=== PATIENT | male | born 1965 | race Caucasian/White ===

== ENCOUNTER 2018-04-12 19:30 | Emergency (ER) | payer SELFPAY, BC ==
[2018-04-12] MEDS: PERCOCET 5MG/325MG TAB PO (20:11)
[2018-04-12 20:22] LABS: KETONE, URINE AUTO RFX TRACE mg/dL (NEGATIVE); MUCUS, URINE RFX SMALL (NEGATIVE); NITRITE, URINE AUTO RFX NEGATIVE (NEGATIVE); RBC, URINE AUTO RFX 13 /HPF (0-3); SPECIFIC GRAVITY UR AUTO RFX 1.021 (1.002-1.035); SQUAM EPITHELIAL CELL UR AURFX 1 /HPF (0-6); WBC, URINE AUTO RFX 5 /HPF (0-3)
[2018-04-12 20:23] LABS: LEUKOCYTE ESTERASE UR AUTO RFX TRACE (NEGATIVE)
== END 2018-04-12 22:35 | disposition left against medical advice (07) ==
LOC: M ED 22:35
DX: N20.0 Calculus of kidney (principal); N13.30 Unspecified hydronephrosis; M54.12 Radiculopathy, cervical region; F17.210 Nicotine dependence, cigarettes, uncomplicated; Z87.442 Personal history of urinary calculi; Z79.899 Other long term (current) drug therapy
CPT/HCPCS: 74176

== ENCOUNTER → 2018-06-15 | Outpatient (CLI) | payer MEDICAID ==
[2018-06-15 18:47] LABS: ANION GAP 6 MEQ/L (8-16); BLOOD UREA NITROGEN 23 MG/DL (7-18); CALCIUM LEVEL 8.6 MG/DL (8.5-10.1); CARBON DIOXIDE LEVEL 29 MEQ/L (21-32); CHLORIDE LEVEL 109 MEQ/L (98-107); CREATININE FOR GFR 1.25 MG/DL (0.70-1.30); GLOMERULAR FILTRATION RATE > 60.0 (>56); GLUCOSE, FASTING 98 MG/DL (70-100); POTASSIUM SERUM 4.4 MEQ/L (3.5-5.1); SODIUM LEVEL 144 MEQ/L (136-145)
[2018-06-15 18:58] LABS: PROTHROMBIN TIME 12.2 SECONDS (12.1-14.4)
[2018-06-15 18:59] LABS: PARTIAL THROMBOPLASTIN TIME 27.7 SECONDS (25.4-37.6)
[2018-06-15 19:20] LABS: HEMATOCRIT 44.8 % (42.0-52.0); HEMOGLOBIN 14.6 g/dl (13.5-17.5); MEAN CORPUSCULAR HEMOGLOBIN 30.2 pg (27.0-33.0); MEAN CORPUSCULAR HGB CONC 32.6 g/dl (32.0-36.5); MEAN CORPUSCULAR VOLUME 92.8 fl (80.0-96.0); PLATELET COUNT, AUTOMATED 179 10^3/uL (150-450); RED BLOOD COUNT 4.83 10^6/uL (4.30-6.10); RED CELL DISTRIBUTION WIDTH 13.6 % (11.5-14.5); WHITE BLOOD COUNT 9.5 10^3/uL (4.0-10.0)
[2018-06-15 19:41] LABS: AMORPHOUS SEDIMENT MODERATE (NEGATIVE); APPEARANCE, URINE TURBID (CLEAR); BACTERIA, URINE AUTO NEGATIVE (NEGATIVE); BILIRUBIN, URINE AUTO NEGATIVE (NEGATIVE); BLOOD, URINE BLOOD 3+ (NEGATIVE); CALCIUM OXALATE CRYSTALS SMALL; COLOR, URINE YELLOW (YELLOW); GLUCOSE, URINE (UA) AUTO NEGATIVE (NEGATIVE); KETONE, URINE AUTO NEGATIVE (NEGATIVE); LEUKOCYTE ESTERASE, URINE AUTO NEGATIVE (NEGATIVE); MUCUS, URINE SMALL (NEGATIVE); NITRITE, URINE AUTO NEGATIVE (NEGATIVE); PROTEIN, URINE AUTO 2+ mg/dL (NEGATIVE); RBC, URINE AUTO TNTC /HPF (0-3); SPECIFIC GRAVITY URINE AUTO 1.026 (1.002-1.035); SQUAMOUS EPITHELIAL CELL UR AU 0 /HPF (0-6); URIC ACID CRYSTALS SMALL; UROBILINOGEN, URINE AUTO 0.2 mg/dL (0.0-2.0); WBC, URINE AUTO 3 /HPF (0-3)
== END ==
LOC: M SMT 14:55
DX: Z01.818 Encounter for other preprocedural examination (principal); N20.0 Calculus of kidney
CPT/HCPCS: 80048

== ENCOUNTER 2018-06-21 09:37 | Day surgery (SDC) | payer MEDICAID, OTHER, SELFPAY ==
[~2018-06-21 09:37] MED LIST: KETOROLAC 60 MG/2 ML VIAL (J1885) As Ordered; LIDOCAINE 2% INJ 100 MG/5 ML SDV (FOR ANES.) As Ordered; MIDAZOLAM INJ 2 MG/2 ML VIAL (J2250) As Ordered; ONDANSETRON 4MG/2ML VIAL (J2405) As Ordered; PROPOFOL 200 MG/20 ML VIAL As Ordered; dexameTHASONE 4 MG/ML 1ML VIAL (J1100) As Ordered; fentaNYL 100 MCG/2 ML INJECTION (J3010) As Ordered
[2018-06-21] MEDS: LR 1,000 ML IV (10:20)
[2018-06-21] MEDS: CONRAY-60 60% 50ML VIAL (Q9961) As Ordered (13:51)
[2018-06-21] MEDS ORDERED: fentaNYL 100 MCG/2 ML INJECTION (J3010) IV (15:00)
[2018-06-21] MEDS ORDERED: ONDANSETRON 4MG/2ML VIAL (J2405) IV ×2 (15:00→15:15)
[2018-06-21] MEDS ORDERED: ACETAMINOPHEN TAB 650MG DOSE (2X325MG) PO (15:15)
[2018-06-21] MEDS: NORCO, ANEXSIA 5/325MG TABLET (HYDROcodone/ACETAMINOPHEN) PO (15:20)
[2018-06-21] MEDS: PERCOCET 5MG/325MG TAB PO ×2 (17:23→23:40)
[2018-06-21] MEDS: DOCUSATE SODIUM 100 MG CAP PO (20:28)
[2018-06-22] MEDS: PERCOCET 5MG/325MG TAB PO ×2 (05:29→11:57)
[2018-06-22] MEDS: LR 1,000 ML IV (06:29)
[2018-06-22] MEDS: DOCUSATE SODIUM 100 MG CAP PO (10:17)
== END 2018-06-22 15:02 | disposition home or self-care (01) ==
LOC: M SDC 09:37 → M MS5PR 15:50
DX: N20.0 Calculus of kidney (principal); E16.2 Hypoglycemia, unspecified; M54.12 Radiculopathy, cervical region; R06.83 Snoring; J30.2 Other seasonal allergic rhinitis; F12.90 Cannabis use, unspecified, uncomplicated; J32.9 Chronic sinusitis, unspecified; Z72.0 Tobacco use
CPT/HCPCS: 52356

== ENCOUNTER → 2018-08-01 | Outpatient (CLI) | payer MEDICAID | LOC: M SMT 11:40 | DX: N20.0 Calculus of kidney (principal) | CPT/HCPCS: 74018 ==

== ENCOUNTER → 2019-03-07 | Outpatient (CLI) | payer OTHER, MEDICAID ==
[~2019-03-07] MED LIST changes: +ACET1TAB55 PO; +ALLE180T33 PO; +IBUP200T45 PO; -KETOROLAC 60 MG/2 ML VIAL (J1885) As Ordered; -LIDOCAINE 2% INJ 100 MG/5 ML SDV (FOR ANES.) As Ordered; -MIDAZOLAM INJ 2 MG/2 ML VIAL (J2250) As Ordered; -ONDANSETRON 4MG/2ML VIAL (J2405) As Ordered; +OXYC1TAB23 PO; +PERC5TAB12 PO; -PROPOFOL 200 MG/20 ML VIAL As Ordered; +SUDATAB18 PO; -dexameTHASONE 4 MG/ML 1ML VIAL (J1100) As Ordered; -fentaNYL 100 MCG/2 ML INJECTION (J3010) As Ordered
[2019-03-07 17:55] LABS: CHLAMYDIA DNA AMPLIFICATION NEGATIVE (NEGATIVE); GC DNA AMPLIFICATION NEGATIVE (NEGATIVE)
== END ==
LOC: M LAB 15:48
PROVIDERS: ATTEND Physician Assistant Medical
DX: A64 Unspecified sexually transmitted disease (principal)